=== PATIENT | male | born 1970 | race Caucasian/White ===

== ENCOUNTER 2018-06-18 11:16 | Emergency (ER) | payer OTHER ==
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
[2018-06-18 13:07] VITALS: BP 145/102
[2018-06-18] MEDS ORDERED: Ibuprofen TAB* 600 MG PO ONE (13:30)
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
== END 2018-06-18 14:42 | disposition home or self-care (01) ==
LOC: UCCORT 11:16
DX: S29.012A Strain of muscle and tendon of back wall of thorax, initial encounter (principal); V43.62XA Car passenger injured in collision with other type car in traffic accident, initial encounter; Y93.89 Activity, other specified; J44.9 Chronic obstructive pulmonary disease, unspecified; M19.90 Unspecified osteoarthritis, unspecified site; Y92.410 Unspecified street and highway as the place of occurrence of the external cause; I10 Essential (primary) hypertension; Z88.0 Allergy status to penicillin; Z88.6 Allergy status to analgesic agent; F17.210 Nicotine dependence, cigarettes, uncomplicated; M47.9 Spondylosis, unspecified
CPT/HCPCS: 71046; 72125; 72128; 81003; 99202; A9270-GY; G0463